=== PATIENT | male | born 1940 | race Caucasian/White ===

== ENCOUNTER 2020-08-11 10:04 | Outpatient (CLI) | payer MEDICARE, SELFPAY ==
[2020-08-11 10:28] LABS: Basophils Percent Auto 0.4 % (0.2-1.2); Eosinophils Percent Auto 0.4 % (0-4.4); Hematocrit 41.1 % (42.0-52.0); Hemoglobin 14.2 g/dL (14.0-18.0); Immature Granulocyte Absolute 0.05 K/mm3 (0.00-0.031); Immature Granulocyte Percent A 0.7 % (0-0.5); Lymphocytes Absolute Auto 0.77 K/mm3 (0.9-3.2); Lymphocytes Percent Auto 10.9 % (18.3-44.2); Mean Corpuscular HGB Conc 34.5 g/dl (32-36); Mean Corpuscular Hemoglobin 29.8 pg (26-34); Mean Corpuscular Volume 86.2 fl (80-100); Monocytes Absolute Auto 0.3 K/mm3 (0.1-0.6); Monocytes Percent Auto 4.7 % (2.6-8.5); Neutrophils Absolute Auto 5.9 K/mm3 (1.3-6.7); Neutrophils Percent Auto 82.9 % (45.5-73.1); Platelet Count Result 190 k/mm3 (150-375); Red Blood Count 4.77 M/mm3 (4.6-6.20); Red Cell Distribution Width 13.2 % (11.5-14.5); White Blood Count 7.1 K/mm3 (4.5-10.0)
[2020-08-11 10:54] LABS: Alanine Aminotransferase 32 U/L (4-50); Albumin Level 4.7 g/dL (3.5-5.1); Alkaline Phosphatase 46 U/L (38-126); Anion Gap 8 mmol/L (8-16); Aspartate Amino Transferase 37 U/L (17-59); Bilirubin,Total 1.4 mg/dL (0.2-1.3); Blood Urea Nitrogen 21 mg/dL (9-20); Carbon Dioxide 30 mmol/L (22-30); Chloride 99 mmol/L (98-107); Cholesterol 170 mg/dL (0-200); Estimated Glomerular Filt Rate > 60; Glucose 105 mg/dL (75-110); HDL Direct 95 mg/dL; Sodium 137 mmol/L (137-145); Triglycerides 53 mg/dL (<150)
[2020-08-11 11:05] LABS: LDL Cholesterol Direct 59 mg/dL
== END 2020-08-11 10:05 | disposition home or self-care (01) ==
PROVIDERS: PCP Student in an Organized Health Care Education/Training Program; Referring Provider Internal Medicine Cardiovascular Disease; Visit Provider Student in an Organized Health Care Education/Training Program
DX: N40.0 Benign prostatic hyperplasia without lower urinary tract symptoms (principal); I10 Essential (primary) hypertension; Z12.5 Encounter for screening for malignant neoplasm of prostate
CPT/HCPCS: 36415; 80053; 80061; 84153; 84443; 85025; G0103

== ENCOUNTER 2020-09-28 07:00 | Outpatient (CLI) | payer MEDICARE, SELFPAY ==
[2020-09-28 07:36] LABS: Basophils Percent Auto 0.7 % (0.2-1.2); Eosinophils Absolute Auto 0.1 K/mm3 (0-0.3); Eosinophils Percent Auto 2.4 % (0-4.4); Hematocrit 41.2 % (42.0-52.0); Hemoglobin 14.2 g/dL (14.0-18.0); Immature Granulocyte Absolute 0.04 K/mm3 (0.00-0.031); Immature Granulocyte Percent A 0.9 % (0-0.5); Lymphocytes Absolute Auto 0.72 K/mm3 (0.9-3.2); Lymphocytes Percent Auto 15.8 % (18.3-44.2); Mean Corpuscular HGB Conc 34.5 g/dl (32-36); Mean Corpuscular Hemoglobin 29.6 pg (26-34); Mean Platelet Volume 11.1 fl (7.4-10.4); Monocytes Absolute Auto 0.4 K/mm3 (0.1-0.6); Monocytes Percent Auto 8.3 % (2.6-8.5); Neutrophils Absolute Auto 3.3 K/mm3 (1.3-6.7); Neutrophils Percent Auto 71.9 % (45.5-73.1); Platelet Count Result 173 k/mm3 (150-375); Red Blood Count 4.79 M/mm3 (4.6-6.20); Red Cell Distribution Width 12.9 % (11.5-14.5); White Blood Count 4.6 K/mm3 (4.5-10.0)
[2020-09-28 07:57] LABS: Alanine Aminotransferase 30 U/L (4-50); Albumin Level 4.2 g/dL (3.5-5.1); Alkaline Phosphatase 45 U/L (38-126); Anion Gap 4 mmol/L (8-16); Aspartate Amino Transferase 33 U/L (17-59); Bilirubin,Total 0.9 mg/dL (0.2-1.3); Blood Urea Nitrogen 19 mg/dL (9-20); Calcium 9.4 mg/dL (8.4-10.2); Carbon Dioxide 31 mmol/L (22-30); Chloride 102 mmol/L (98-107); Estimated Glomerular Filt Rate > 60; Glucose 111 mg/dL (75-110); Potassium 4.1 mmol/L (3.4-5.0); Sodium 137 mmol/L (137-145)
== END 2020-09-28 07:01 | disposition home or self-care (01) ==
PROVIDERS: PCP Student in an Organized Health Care Education/Training Program; Visit Provider Student in an Organized Health Care Education/Training Program
DX: R17 Unspecified jaundice (principal)
CPT/HCPCS: 36415; 80053; 82248; 85025

== ENCOUNTER 2021-02-11 12:40 | Emergency (ER) | payer MEDICARE, SELFPAY ==
--- NOTE | ~2021-02-11 | XR_ITS ---
EXAMINATION: XR ribs RT 2V INDICATION: Right rib pain TECHNIQUE: 3 views of the right ribs were obtained. COMPARISON: 05/25/2015 FINDINGS: No displaced rib fracture is identified. There are changes of cardiac valve surgery. Surgic al clips are also noted at the right hilum. IMPRESSION: 1. No displaced rib fracture identified. Reviewed, dictated and finalized at location A.
[2021-02-11 12:49] VITALS: BP 128/72; PULSE 78; RESP 16; TEMP 36.9; O2SAT 97
--- NOTE | 2021-02-11 13:05 | ED.FALL ---
HPI - Fall General Chief Complaint: Fall Stated Complaint: fell right side pain Time Seen by Provider: 02/11/21 12:50 Source: patient and RN notes reviewed Mode of arrival: ambulatory Limitations: no limitations History of Present Illness HPI Narrative: 80-year-old male presents to the [facility] with complaints of right lateral and anterior rib pain post fall yesterday. Patient states that he has a severe case of vertigo. States that he does fall sometimes. At the time of his fall he said he stood up from the couch took a couple steps and fell. Patient denies hitting head. No blurry vision or change in vision. No neck pain or back pain. Denied any chest pain. Denied any neurologic symptoms. States that it only lasted a few seconds and he got up and started walking and finish what he was doing. Patient was able to drive to the clinic today. Denies any chest pain, headaches, blurry vision or change in vision. No dizziness on arrival. Related Data Home Medications Medication Instructions Recorded Confirmed aspirin 81 mg PO DAILY 02/11/21 02/11/21 atorvastatin [Lipitor] 20 mg PO DAILY 02/11/21 02/11/21 hydrochlorothiazide [HydroDiuril] 25 mg PO DAILY 02/11/21 02/11/21 ibuprofen 200 mg PO QID 02/11/21 02/11/21 lisinopril [Zestril] 20 mg PO DAILY 02/11/21 02/11/21 metoprolol tartrate 25 mg PO DAILY 02/11/21 02/11/21 omeprazole [Prilosec] 20 mg PO DAILY 02/11/21 02/11/21 Allergies Allergy/AdvReac Type Severity Reaction Status Date / Time No Known Allergies Allergy NONE Verified 02/11/21 12:57 Review of Systems Review of Systems: All systems reviewed & are unremarkable except as noted in HPI and below Constitutional: Constitutional: Reports no additional constitutional complaints, Denies chills and Denies fever(s) Eyes: Eyes: Reports no additional eye complaints ENT: Reports system reviewed and no additional complaints, except as documented Cardiovascular: Cardiovascular: Reports as per HPI Comments: right chest wall pain Respiratory: Respiratory: Reports no additional respiratory complaints, Denies chest congestion, Denies cough, Denies dyspnea and Denies wheezing Gastrointestinal: Gastrointestinal: Reports no additional gastrointestinal complaints Musculoskeletal: Musculoskeletal: Reports no additional musculoskeletal complaints, Denies back pain and Denies muscle cramps Integumentary/Breasts: Skin/Breast: Reports system reviewed and no additional complaints, except as docu, Denies erythema and Denies rash Neurologic: Reports system reviewed and no additional complaints, except as documented Psychiatric: Psychiatric: Reports no additional psychiatric complaints Allergic/Immunologic: Allergic/Immunologic: Reports no additional allergic/immunologic complaints PMFSH Past Medical History Medical History (Updated 02/11/21 @ 19:20 by Funmilayo Javed) Vertigo Family History Family History Father Hypertension Mother Family history of heart disease in male family member before age 55 Social History Social History Alcohol intake: current Gender identity (if verbalized by the patient): Male Comments At the time of my signature, I reviewed and agree with the nursing past medical, surgical, social, and family history. There is no relevant family history pertinent to the patient complaint. Exam Const: General: healthy appearing, no acute distress and alert Nutritional Appearance: well nourished and obese Orientation/consciousness: patient oriented x3 Limitations: no limitations HENMT: Head: normal to inspection Eyes: Conjunctivae: conjunctivae normal Pupils: Equal, round and reactive pupils present Neck: Neck: normal visual inspection, no lymphadenopathy and no meningeal signs Chest: Chest palpation & inspection: normal inspection of the chest Resp: Effort & Inspection: normal respiratory eff
== END 2021-02-11 13:45 | disposition home or self-care (01) ==
PROVIDERS: Emergency Provider Nurse Practitioner; PCP Student in an Organized Health Care Education/Training Program
DX: S20.211A Contusion of right front wall of thorax, initial encounter (principal); W19.XXXA Unspecified fall, initial encounter
CPT/HCPCS: 71100; 99213; G0463

== ENCOUNTER 2023-11-02 12:44 | Emergency (ER) | payer MEDICARE, SELFPAY ==
--- NOTE | ~2023-11-02 | XR_ITS ---
XR ribs RT 2V DATE: 11/02/2023 13:14 INDICATION: Right lower anterolateral rib pain after fall TECHNIQUE: 3 views COMPARISON: None FINDINGS: There are recent anterolateral right seventh eighth, ninth and 10th fractures, with nearly complete lateral displacement of the ninth rib fracture, less prominent displacement at the other fra ctures. There is elevation of right diaphragm and atelectasis at the right lung base. No pneumothorax is note d. Status post sternotomy and cardiac valve replacement. IMPRESSION: Displaced anterolateral right seventh through 10th recent rib fractures, with most displa cement at the ninth rib Reviewed, dictated and finalized at location A. IMPRESSION: Displaced anterolateral right seventh through 10th recent rib fract ures, with most displacement at the ninth rib
[2023-11-02 12:58] VITALS: BP 129/74; PULSE 65; RESP 16; TEMP 36.9; O2SAT 94
--- NOTE | 2023-11-02 13:11 | ED.FALL ---
HPI - Fall General Chief Complaint: Fall Stated Complaint: FALL Time Seen by Provider: 11/02/23 13:00 Source: patient Mode of arrival: ambulatory Limitations: no limitations History of Present Illness HPI Narrative: Morris is a 82 year old male patient presenting to the clinic today with complaints of a fall and right rib pain. He reports he fell last night when walking on wood floor in socks. States he started to fall and grabbed the recliner and recline down and the right ribs hit back of recliner. 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, pain with inspiration over the right ribs Related Data Home Medications Medication Instructions Recorded Confirmed aspirin 81 mg tablet 81 mg PO DAILY 02/11/21 11/02/23 atorvastatin 20 mg tablet (Lipitor) 20 mg PO DAILY 02/11/21 11/02/23 hydrochlorothiazide 25 mg tablet 25 mg PO DAILY 02/11/21 11/02/23 ibuprofen 200 mg tablet 200 mg PO QID 02/11/21 11/02/23 lisinopril 20 mg tablet (Zestril) 20 mg PO DAILY 02/11/21 11/02/23 metoprolol tartrate 25 mg tablet 25 mg PO DAILY 02/11/21 11/02/23 omeprazole 20 mg capsule,delayed 20 mg PO DAILY 02/11/21 11/02/23 release Allergies Allergy/AdvReac Type Severity Reaction Status Date / Time No Known Allergies Allergy NONE Verified 11/02/23 13:08 Review of Systems Review of Systems: Pertinent positives per HPI. Patient denies any fever, chills, rash, headache, visual changes, dizziness, cough, runny nose, sore throat, shortness of breath, chest pain, palpitations, nausea, vomiting, diarrhea, constipation, abdominal pain, or any urinary issues. [facility] Past Medical History Medical History Vertigo Family History Family History Father Hypertension Mother Family history of heart disease in male family member before age 55 Social History Social History Alcohol intake: current Gender identity (if verbalized by the patient): Male Comments At the time of my signature, I reviewed and agree with the nursing past medical, surgical, social, and family history. There is no relevant family history pertinent to the patient complaint. Exam Narrative: General: Well-developed, overweight, in no apparent distress Head: Normocephalic, atraumatic Eyes: Pupils equally round and reactive to light bilaterally, EOM intact, sclera and conjunctive clear, no discharge, lids normal Ears: TMs intact and clear, ear canals clear, no drainage, grossly hearing normal. Nose: Nares patent, no discharge, no inflammation, no sinus tenderness. Mouth: Oropharynx without lesions or masses, good dentition, MMM. Neck: Supple, trachea midline, no enlargement of anterior or posterior cervical nodes, no thyroid masses or goiter palpable. Chest wall: No bruising or swelling noted, tender to palpation over the anterior lateral right lower lobe ribs, even rise and fall of chest Cardio: Regular rate and rhythm, s1 and s2 normal, no murmur appreciated. Resp: No air movement over the right lower lobe, clear otherwise no rhonchi, rales, wheezing or rubs Course Course Emergency Course: Portions of this record may have been created with voice recognition software. Level of Care: Express Care Visit Vital Signs Vital signs: Vital Signs Temperature 36.9 C 11/02/23 12:58 Pulse Rate 65 11/02/23 12:58 Respiratory Rate 16 11/02/23 12:58 Blood Pressure 129/74 11/02/23 12:58 Pulse Oximetry 94 11/02/23 12:58 Oxygen Delivery Room Air 11/02/23 12:58 Temperature 36.9 C 11/02/23 12:58 Pulse Rate 65 11/02/23 12:58 Respiratory Rate 16 11/02/23 12:58 Blood Pressure 129/74 11/02/23 12:58 Pulse Oximetry 94 11/02/23 12:58 Oxygen Delivery Room Air 11/02/23 12:58 Vital signs reviewed MDM - Fall MDM Narrative Medical decision making narrative
== END 2023-11-02 14:12 | disposition home or self-care (01) ==
PROVIDERS: Emergency Provider Nurse Practitioner Family; PCP Student in an Organized Health Care Education/Training Program
DX: S22.41XA Multiple fractures of ribs, right side, initial encounter for closed fracture (principal); W19.XXXA Unspecified fall, initial encounter; Z90.2 Acquired absence of lung [part of]; E78.00 Pure hypercholesterolemia, unspecified; I10 Essential (primary) hypertension; Z87.891 Personal history of nicotine dependence; K21.9 Gastro-esophageal reflux disease without esophagitis
CPT/HCPCS: 71100; 99213; G0463